=== PATIENT | female | born 2000 ===

== ENCOUNTER 2024-03-09 07:15 | Inpatient (IN) ==
[~2024-03-09] VITALS: Ht 167.6 cm; Wt 88.5 kg
[2024-03-09 07:23] VITALS: BP 130/83
[2024-03-09] MEDS ORDERED: PRENTAB9 PO (07:24)
[2024-03-09] MEDS ORDERED: OXYTOCIN 30UNITS IN 0.9% NaCl 500ML IV BAG As Ordered ONE (07:40)
[2024-03-09] MEDS ORDERED: LR 1,000 ML IV SCH (07:50)
[2024-03-09 08:02] LABS: HEMATOCRIT 36.2 % (36.0-47.0); HEMOGLOBIN 12.3 g/dl (12.0-15.5); MEAN CORPUSCULAR VOLUME 88.3 fl (80.0-96.0); PLATELET COUNT, AUTOMATED 225 10^3/uL (150-450); WHITE BLOOD COUNT 15.1 10^3/uL (4.0-10.0)
[2024-03-09] MEDS ORDERED: ACETAMINOPHEN 500 MG TAB PO PRN (08:25)
[2024-03-09] MEDS ORDERED: DIBUCAINE 1% OINTMENT 30GM TOP PRN (08:25)
[2024-03-09] MEDS ORDERED: IBUPROFEN 800 MG TAB PO PRN (08:25)
[2024-03-09 08:30] VITALS: BP 120/82
[2024-03-09 08:42] LABS: CORD GAS ABE V -4.7; CORD GAS HCO3 V 19.3 MMOL/L; CORD GAS O2 SAT V 71.2 %; CORD GAS PCO2 V 32.6 mmHg; CORD GAS PH V 7.39 UNITS; CORD GAS PO2 V 27.7 mmHg; CORD GAS TCO2 V 20.3 MMOL/L
[2024-03-09] MEDS: OXYTOCIN DRIP 30 UNITS in IV 1 EA IV SCH (08:42)
[2024-03-09 08:44] LABS: CORD GAS ABE A -5.6; CORD GAS HCO3 A 19.8 MMOL/L; CORD GAS O2 SAT A 40.2 %; CORD GAS PCO2 A 38.3 mmHg; CORD GAS PH A 7.331 UNITS; CORD GAS PO2 A 18.2 mmHg; CORD GAS SBC A 18.7 MMOL/L
[2024-03-09 08:55] VITALS: BP 134/72
[2024-03-09] MEDS: PRENATAL VITAMINS CHEWABLE TABLET PO SCH (09:02)
[2024-03-09 09:06] LABS: HEPATITIS C VIRUS ABY INDEX < 0.02 INDEX (<0.8)
[2024-03-09 09:33] VITALS: BP 128/72
[2024-03-09 10:15] VITALS: BP 122/74; O2SAT 100
[2024-03-09] MEDS: IBUPROFEN 600MG TAB PO PRN (12:05)
[2024-03-09 18:00] VITALS: BP 118/62; O2SAT 98
[2024-03-10 06:00] VITALS: BP 127/62; O2SAT 99
[2024-03-10] MEDS: ACETAMINOPHEN TAB 650MG DOSE (2X325MG) PO PRN (07:27)
[2024-03-10] MEDS: RHO(D) IMMUNE GLOBULIN/MALTOSE 500MCG(2500IU)/2.2ML VIAL (WINRHO) IM SCH (10:45)
[2024-03-10] MEDS ORDERED: IBUP80TA PO (12:21)
[2024-03-10] MEDS ORDERED: ACET-683 PO (12:21)
[2024-03-11] MEDS ORDERED: MEASLES,MUMPS,RUBELLA VACCINE INJ (MMR-II) SC.IMMUN ONE (09:00)
== END 2024-03-10 13:00 | disposition home or self-care (01) | DRG 807 ==
LOC: M LDO 07:15 → M LDI 07:38 → M OBS 10:06
PROVIDERS: ADMIT Obstetrics & Gynecology; ATTEND Obstetrics & Gynecology
PROC: 10E0XZZ Delivery of Products of Conception, External Approach (ICD-10-PCS; principal; 2024-03-09)
DX: O69.1XX0 Labor and delivery complicated by cord around neck, with compression, not applicable or unspecified (principal); Z37.0 Single live birth; Z3A.39 39 weeks gestation of pregnancy